=== PATIENT | male | born 1960 | race Asian ===

== ENCOUNTER → 2018-06-29 | Outpatient (CLI) | payer BC ==
[~2018-06-29] MED LIST: ACET325T14 PO; AMLO10TA8 PO; AZIT500T5 PO; CARV-39 PO; CEFD300C37 PO; ENAL20TA PO; GUAI200T3 PO; HUM100VI6 SQ; HYDR25TA6 PO; LOSA50TA14 PO; LOVA10TA PO; METF10002 PO
== END | disposition home or self-care (01) ==
LOC: CARD 14:14
PROVIDERS: ATTEND Internal Medicine Critical Care Medicine
DX: I10 Essential (primary) hypertension (principal); R06.09 Other forms of dyspnea
CPT/HCPCS: 94060; 94726; 94729